=== PATIENT | female | born 1995 | race Caucasian/White ===

== ENCOUNTER 2018-06-01 11:04 | Emergency (ER) | payer BC ==
--- NOTE | 2018-06-01 11:37 | EDPHY ---
H & P Time Seen by Provider: 06/01/18 11:36 HPI/ROS: Chief complaint. Mouse bite HPI. Patient is a 22-year-old female and came home last night and her CT head caught a mouse and she thinks maybe it broke the mouse is back but the CT did not kill it. The patient left the mouse in another room overnight it was still live this morning. She tried to pick it up and it bit her in the left 5th finger. No bleeding. No other symptoms. She was concerned about rabies. No sense of retained foreign body. No swelling or distal motor sensory hand ROS Constitutional. no fever/chills, no weakness Eyes. no problems with vision ENT. no sore throat, no nasal drainage Cardiovascular. no chest pain Respiratory. no shortness of breath, no cough Abdominal. no abdominal pain, no nausea/vomiting, no diarrhea . no problems urinating MS. no calf pain/swelling, no neck/back pain, no joint pain Skin. Mouse bite to left 5th finger Lymph. no swollen glands Neuro. no headache, no dizziness, no difficulty walking or with speech Past Medical/Surgical History: Healthy Social History: Single, nonsmoker, no alcohol Smoking Status: Former smoker Physical Exam: General Appearance: Alert well-developed female mild distress vitals are stable Eyes: Pupils equal and round no pallor or injection. ENT, Mouth: Mucous membranes are moist. Respiratory: There are no retractions, lungs are clear to auscultation. Cardiovascular: Regular rate and rhythm. Gastrointestinal: Abdomen is soft and nontender, no masses, bowel sounds normal. Neurological: Awake and alert, sensory and motor exams grossly normal. Skin: Warm and dry, no rashes. There is a slight reddish area on the flexor side of the left 5th finger pad. No evidence of bleeding, swelling, retained foreign body Musculoskeletal: Neck is supple nontender. Extremities symmetrical, full range of motion. Psychiatric: Patient is oriented X 3, there is no agitation. Constitutional: Initial Vital Signs Temperature (C) 36.7 C 06/01/18 11:06 Heart Rate 88 06/01/18 11:06 Respiratory Rate 18 06/01/18 11:06 Blood Pressure 117/70 06/01/18 11:06 O2 Sat (%) 99 06/01/18 11:06 O2 Delivery Mode Room Air Allergies/Adverse Reactions: No Known Allergies Allergy (Unverified 06/01/18 11:13) Home Medications: Medication Instructions Recorded Amoxicillin/Clavulanate Pot 875 mg PO BID #6 tab 06/01/18 [Augmentin 875 MG TAB (*)] Medical Decision Making ED Course/Re-evaluation: Patient remained stable. We discussed the fact that mice do not carry rabies. We discussed concerns for other infections. We discussed treatment plan including criteria for return importance of follow-up and further evaluation. She expresses understanding and agreement Differential Diagnosis: Mouse bite with potential for infection. I considered retained foreign body. No rabies concern with rodent bites Departure - Departure Disposition: Home, Routine, Self-Care Clinical Impression: Bitten by mouse Qualifiers: Encounter type: initial encounter Qualified Code(s): W53.01XA - Bitten by mouse , initial encounter Condition: Good Instructions: Animal Bite (ED) Additional Instructions: Augmentin as antibiotic twice daily for 3 days. Return for increased pain, redness, swelling. Follow-up with Infectious Disease for any continuing symptoms Referrals: NONE *PRIMARY CARE P,. [Primary Care Provider] - As per Instructions Nick Kulkarni MD [Medical Doctor] - 3-4 days, if not improved Prescriptions: Amoxicillin/Clavulanate Pot [Augmentin 875 MG TAB (*)] 875 mg PO BID #6 tab
[2018-06-01 12:08] VITALS: BP 112/65
== END 2018-06-01 12:06 | disposition home or self-care (01) ==
DX: M79.642 Pain in left hand (principal); W53.01XA Bitten by mouse, initial encounter; Y92.019 Unspecified place in single-family (private) house as the place of occurrence of the external cause; Z87.891 Personal history of nicotine dependence